=== PATIENT | female | born 1960 | race Caucasian/White ===

== ENCOUNTER 2018-06-08 09:26 | Emergency (ER) | payer OTHER ==
[~2018-06-08] VITALS: Ht 165.1 cm; Wt 79.4 kg
--- NOTE | 2018-06-08 09:40 | NUR ---
Presents to ER c/o pain and swelling to L great toe x 2 weeks. Patient is ambulatory, a/ox 4, breathing even and unlabored. No SOB, nad, vitals stable. safety and comfort measures in place. awaiting md orders.
--- NOTE | 2018-06-08 09:54 | NUR ---
at bedside for eval.
[2018-06-08] MEDS ORDERED: CEFTRIAXONE 1GM BAG (ER ONLY) 50 ML IV ONE (10:30)
--- NOTE | 2018-06-08 10:30 | NUR ---
NEW IV STARTED ON RAC, 20G. BLOOD DRAWN AND SENT TO LAB.
[2018-06-08 10:38] LABS: HEMATOCRIT 39 % (33-45); MEAN CORPUSCULAR HGB CONC 33 g/dl (31.0-36.0); MEAN CORPUSCULAR VOLUME 86 fL (82-100); PLATELET COUNT (AUTO) 251 /CMM (150-450); RED BLOOD CELL COUNT(AUTO) 4.49 MIL/uL (4.0-5.2); WHITE BLOOD COUNT (AUTO) 5.5 K/uL (4.3-11.0)
[2018-06-08 10:40] LABS: CALCIUM, SERUM 8.8 mg/dL (8.5-10.1)
[2018-06-08 11:31] VITALS: BP 138/90
--- NOTE | 2018-06-08 11:31 | NUR ---
PT. VERBALIZED UNDERSTANDING OF AFTERCARE INSTRUCTIONS.Patient discharged to home in stable condition. Written and verbal after care instructions given. Patient verbalizes understanding of instruction.
--- NOTE | 2018-06-08 11:31 | NUR ---
IV removed. Catheter intact and site benign. Pressure and 4x4 applied to site. No bleeding noted.
[2018-06-08 11:44] LABS: BAND % (MANUAL) 1 % (0.0-5.0); EOSINOPHILS % (MANUAL) 4 % (0-4); LYMPHOCYTES % (MANUAL) 28 % (16-48); MONOCYTES % (MANUAL) 8 % (0-11.0); NEUTROPHILS % (MANUAL) 59 (42-76)
== END 2018-06-08 11:32 | disposition home or self-care (01) ==
LOC: ER 09:28
DX: E11.622 Type 2 diabetes mellitus with other skin ulcer (principal); L97.529 Non-pressure chronic ulcer of other part of left foot with unspecified severity; I10 Essential (primary) hypertension
CPT/HCPCS: 36415; 73630; 80048; 85025; 85652; 86140; 96365; 99285; A4606; J0696; Z7610

== ENCOUNTER 2018-09-17 11:57 | Emergency (ER) | payer OTHER ==
[~2018-09-17] VITALS: Ht 162.6 cm; Wt 77.1 kg
[2018-09-17 12:04] VITALS: BP 165/83
== END 2018-09-17 13:16 | disposition home or self-care (01) ==
LOC: ER 11:59
DX: L03.031 Cellulitis of right toe (principal); B35.3 Tinea pedis; B35.1 Tinea unguium; E11.9 Type 2 diabetes mellitus without complications; I10 Essential (primary) hypertension

== ENCOUNTER 2018-11-12 18:02 | Emergency (ER) | payer OTHER ==
[~2018-11-12] VITALS: Ht 170.2 cm; Wt 69.4 kg
--- NOTE | 2018-11-12 18:40 | NUR ---
PT BIBSELF FROM HOME FOR RT FOOT PAIN WITH SWELLING; PT AAOX4, PT ON MONITOR, VSS, NADN OTED, PENDING ER PROVIDER TAZ
[2018-11-12 19:21] LABS: BASOPHILS # (AUTO) 0.1 /CMM (0.0-0.2); BASOPHILS % (AUTO) 0.6 % (0.0-2.0); EOSINOPHILS % (AUTO) 0.9 % (0.0-6.0); HEMATOCRIT 37 % (33-45); HEMOGLOBIN 12.5 g/dL (11.5-14.8); LYMPHOCYTES # (AUTO) 1.6 /CMM (0.8-4.8); LYMPHOCYTES % (AUTO) 18.5 % (20.0-44.0); MEAN CORPUSCULAR HGB CONC 34 g/dl (31.0-36.0); MEAN CORPUSCULAR VOLUME 89 fL (82-100); MONOCYTES # (AUTO) 0.6 /CMM (0.1-1.30); MONOCYTES % (AUTO) 7.2 % (2.0-12.0); NEUTROPHILS # (AUTO) 6.2 /CMM (1.8-8.9); NEUTROPHILS % (AUTO) 72.8 % (43.0-81.0); PLATELET COUNT (AUTO) 240 /CMM (150-450); RED BLOOD CELL COUNT(AUTO) 4.21 MIL/uL (4.0-5.2); WHITE BLOOD COUNT (AUTO) 8.5 K/uL (4.3-11.0)
[2018-11-12] MEDS ORDERED: VANCOMYCIN 1 GM in IV D5W 250 ML IV ONE (19:30)
[2018-11-12] MEDS ORDERED: IV NS 0.9% 500 ML BAG IV ONE (19:30)
[2018-11-12 19:39] LABS: CALCIUM, SERUM 9.3 mg/dL (8.5-10.1); CARBON DIOXIDE 24 mmol/L (21-32); CHLORIDE 98 mmol/L (98-107); CREATININE 1.1 mg/dL (0.6-1.3); GLUCOSE 276 mg/dL (74-106); POTASSIUM 3.9 mmol/L (3.5-5.1); SODIUM SERUM 127 mmol/L (136-145); UREA NITROGEN, BLOOD 20 mg/dL (7-18)
[2018-11-12 19:45] LABS: ALANINE AMINOTRANSFERASE 44 U/L (12-78); ALBUMIN 3.8 g/dL (3.4-5.0); ALKALINE PHOSPHATASE 57 U/L (46-116); ASPARTATE AMINOTRANSFERASE 27 U/L (15-37); BILIRUBIN,DIRECT 0.1 mg/dL (0.0-0.2); BILIRUBIN,TOTAL 0.2 mg/dL (0.2-1.0)
[2018-11-12 19:50] VITALS: BP 146/67
[2018-11-12] MEDS ORDERED: VANCOMYCIN 1 GM VIAL ONE (19:55)
--- NOTE | 2018-11-12 20:10 | NUR ---
RADIOLOGY AT BEDSIDE FOR XRAY
--- NOTE | 2018-11-12 21:07 | NUR ---
PT REFUSED CRUTCHES
--- NOTE | 2018-11-12 22:20 | NUR ---
IV removed. Catheter intact and site benign. Pressure and 4x4 applied to site. No bleeding noted.Patient discharged to home in stable condition. Written and verbal after care instructions given. Patient verbalizes understanding of instruction.
== END 2018-11-12 22:43 | disposition home or self-care (01) ==
LOC: ER 18:05
DX: S92.252A Displaced fracture of navicular [scaphoid] of left foot, initial encounter for closed fracture (principal); L03.116 Cellulitis of left lower limb; E11.9 Type 2 diabetes mellitus without complications; I10 Essential (primary) hypertension; X58.XXXA Exposure to other specified factors, initial encounter; Y93.89 Activity, other specified; Y92.89 Other specified places as the place of occurrence of the external cause; Y99.8 Other external cause status
CPT/HCPCS: 36415; 73610-TC; 73630-TC; 80048-TC; 80076-TC; 84484-TC; 84550-TC; 85025-TC; 85730-TC; 87040-TC; J3370; J7040

== ENCOUNTER 2019-05-01 00:39 | Emergency (ER) | payer OTHER ==
[~2019-05-01] VITALS: Ht 167.6 cm; Wt 72.6 kg
[2019-05-01 00:49] VITALS: BP 156/71
[2019-05-01] MEDS ORDERED: CEPHALEXIN MONOHYDRATE 500 MG CAPSULE PO ONE ×2 (01:14→01:30)
== END 2019-05-01 01:20 | disposition home or self-care (01) ==
LOC: ER 00:43
DX: L03.115 Cellulitis of right lower limb (principal); E11.9 Type 2 diabetes mellitus without complications; I10 Essential (primary) hypertension

== ENCOUNTER 2019-12-14 20:15 | Emergency (ER) | payer OTHER ==
[~2019-12-14] VITALS: Ht 167.6 cm; Wt 70.3 kg
[2019-12-14 20:15] VITALS: BP 166/75
== END 2019-12-14 21:13 | disposition home or self-care (01) ==
LOC: ER 20:16
DX: R19.7 Diarrhea, unspecified (principal); E11.9 Type 2 diabetes mellitus without complications; I10 Essential (primary) hypertension; Z20.828 Contact with and (suspected) exposure to other viral communicable diseases

== ENCOUNTER 2022-05-03 14:26 | Emergency (ER) | payer OTHER ==
[~2022-05-03] VITALS: Ht 170.2 cm; Wt 74.8 kg
--- NOTE | 2022-05-03 15:00 | NUR ---
BIBS W/ C/O BILATERAL 5TH DIGITS WOUND; PT W/ HX OF DIABETES. TO ER BED 10.
--- NOTE | 2022-05-03 15:19 | NUR ---
JOEY MCDANIELS, AT BEDSIDE FOR EVAL
[2022-05-03] MEDS ORDERED: CEPH500C2 PO (15:41)
[2022-05-03] MEDS ORDERED: SULF1TAB48 PO (15:41)
--- NOTE | 2022-05-03 16:00 | NUR ---
WOUND CARE DONE AT BEDSIDE
--- NOTE | 2022-05-03 16:05 | NUR ---
Patient discharged to home in stable condition. Written and verbal after care instructions given. Patient verbalizes understanding of instruction.
[2022-05-03 16:07] VITALS: BP 139/76
== END 2022-05-03 16:07 | disposition home or self-care (01) ==
LOC: ER 14:29
DX: L03.032 Cellulitis of left toe (principal); L03.031 Cellulitis of right toe; L03.116 Cellulitis of left lower limb; E11.40 Type 2 diabetes mellitus with diabetic neuropathy, unspecified; I10 Essential (primary) hypertension